=== PATIENT | male | born 1960 | race Caucasian/White ===

== ENCOUNTER 2022-07-30 09:44 | Outpatient (CLI) | payer OTHER, MEDICARE, SELFPAY ==
--- NOTE | 2022-07-30 10:01 | FL_ITS ---
WS: [id number] Modified barium swallow, 07/30/2022 Clinical Data: Oropharyngeal dysphagia Comparison: None. Fluoroscopy time: 1min [id number] # of spot films: Findings: The patient showed weakness in oral propulsion. The hypopharyngeal contractions were weak to absent. There is aspiration with nectar and the patient then coughed. There is significant vallecular residua l and the patient had to swallow multiple times for clearing. FL/FL barium swallow modifd [id number] Impression: 1. Oral weakness. 2. Aspiration with liquids.
== END 2022-07-30 09:45 | disposition home or self-care (01) ==
PROVIDERS: PCP Nurse Practitioner Family; Visit Provider Internal Medicine
DX: R13.12 Dysphagia, oropharyngeal phase (principal)
CPT/HCPCS: 74230; 92611